=== PATIENT | male | born 1990 | race Hispanic/Latino ===

== ENCOUNTER 2019-02-28 04:04 | Emergency (ER) | payer OTHER ==
[2019-02-28] MEDS ORDERED: IBUPROFEN 600 MG TABLET ONE (04:32)
== END 2019-02-28 04:55 | disposition home or self-care (01) ==
LOC: EDH 04:04
DX: S93.491A Sprain of other ligament of right ankle, initial encounter (principal); W17.2XXA Fall into hole, initial encounter; Y93.89 Activity, other specified; Y92.89 Other specified places as the place of occurrence of the external cause; Y99.8 Other external cause status
CPT/HCPCS: 29515; 73610; 73630